=== PATIENT | male | born 1985 | race Caucasian/White ===

== ENCOUNTER 2019-02-12 21:48 | Emergency (ER) | payer BC, OTHER ==
[2019-02-12 22:01] VITALS: TEMP 98.3; BMI 27.1
[2019-02-12] MEDS ORDERED: FOLIC ACID INJECTION - 1 MG, THIAMINE HCL 100 MG, MULTIVIT INJECTION ADULT 10 ML in SOD... IVPB ONE (22:25)
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
[2019-02-12 22:43] VITALS: BP 111/87; PULSE 80
[2019-02-12] MEDS ORDERED: ACETAMINOPHEN 1000 MG/100 ML VIAL (NON FORMULARY) IVPB ONE (22:50)
[2019-02-12] MEDS ORDERED: SODIUM CHLORIDE 0.9% 500 ML INFUS.BAG IV ONE (22:58)
[2019-02-12] MEDS ORDERED: ACETAMINOPHEN INJECTION 100 ML IVPB ONE (23:07)
[2019-02-13 00:26] LABS: VENOUS PC02 51.9 mmHg (38-52); VENOUS PH 7.35 (7.31-7.41)
[2019-02-13 00:27] LABS: VENOUS PO2 < 49 mmHg (28-48)
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
[2019-02-13 00:49] LABS: BASO % 0.2 % (0-2.0); EOS % 0.1 % (0-4.5); HEMATOCRIT 43.8 % (35.4-49); LYMPH % 5.8 % (8-40); MCH 31.5 pg (25.7-33.7); MCHC 34.2 g/dl (32.0-35.9); MEAN PLT VOLUME 7.4 fl (7.5-11.1); MONO % 7.3 % (3.8-10.2); NEUT % 86.6 % (42.8-82.8); PLATELET COUNT 262 K/MM3 (134-434); RBC 4.76 M/mm3 (4.00-5.60); RDW 12.4 % (11.9-15.9); WHITE BLOOD COUNT 15.7 K/mm3 (4.0-10.0)
[2019-02-13 00:51] LABS: ALBUMIN 4.2 g/dl (3.4-5.0); BLOOD UREA NITROGEN 16.6 mg/dL (7-18); CALCIUM 8.6 mg/dL (8.5-10.1); CREATININE 1.2 mg/dL (0.55-1.3); POTASSIUM 3.5 mmol/L (3.5-5.1); TOT PROT 7.3 g/dl (6.4-8.2)
== END 2019-02-13 01:19 | disposition home or self-care (01) ==
LOC: JER 21:48
PROC: 3E033NZ Introduction of Analgesics, Hypnotics, Sedatives into Peripheral Vein, Percutaneous Approach (ICD-10-PCS; principal; 2019-02-12)
PROC: 3E0337Z Introduction of Electrolytic and Water Balance Substance into Peripheral Vein, Percutaneous Approach (ICD-10-PCS; 2019-02-12)
DX: R42 Dizziness and giddiness (principal); R11.0 Nausea
CPT/HCPCS: 36415; 80053; 82803; 85025; 99282-25; J0131; J7030

== ENCOUNTER 2023-11-13 04:32 | Day surgery (SDC) | payer BC ==
[2023-11-10 16:14] VITALS: BMI 29.7
[2023-11-13] MEDS ORDERED: LIDOCAINE VISCOUS 2% ORAL/TOP 15 ML UNIT-DOSE CUP ONE (07:35)
[2023-11-13 08:11] VITALS: TEMP 98
[2023-11-13 08:41] VITALS: BP 114/74; PULSE 76; RESP 20
== END 2023-11-13 08:41 | disposition home or self-care (01) ==
LOC: JASU-ENDO 04:32
PROVIDERS: ATTEND Internal Medicine Gastroenterology
PROC: 0DB68ZX Excision of Stomach, Via Natural or Artificial Opening Endoscopic, Diagnostic (ICD-10-PCS; 2023-11-13)
PROC: 0DB58ZX Excision of Esophagus, Via Natural or Artificial Opening Endoscopic, Diagnostic (ICD-10-PCS; principal; 2023-11-13 07:30)
DX: K21.00 Gastro-esophageal reflux disease with esophagitis, without bleeding (principal)
CPT/HCPCS: 88305-TC; 88342-TC

== ENCOUNTER 2024-11-27 10:36 | Emergency (ER) | payer OTHER ==
[2024-11-27 10:47] VITALS: BP 116/71; PULSE 85; RESP 20; TEMP 97.9; BMI 27.8
== END 2024-11-27 12:09 | disposition home or self-care (01) ==
LOC: JERFT 10:36
DX: S49.92XA Unspecified injury of left shoulder and upper arm, initial encounter (principal); S59.901A Unspecified injury of right elbow, initial encounter; X50.3XXA Overexertion from repetitive movements, initial encounter; Y99.0 Civilian activity done for income or pay
CPT/HCPCS: 73070-TC-RT-FY; 99283-25